=== PATIENT | male | born 1975 | race Caucasian/White ===

== ENCOUNTER 2022-07-25 21:44 | Emergency (ER) | payer OTHER ==
[~2022-07-25] VITALS: Ht 188 cm; Wt 90.9 kg
[2022-07-26] MEDS ORDERED: MIRA3350 PO (01:03)
[2022-07-26] MEDS ORDERED: ANUS25SU PR (01:03)
[2022-07-26] MEDS ORDERED: COLA100C5 PO (01:03)
[2022-07-26 01:13] VITALS: BP 122/65
== END 2022-07-26 01:17 | disposition home or self-care (01) ==
LOC: M ED 21:44
DX: K64.8 Other hemorrhoids (principal); K64.4 Residual hemorrhoidal skin tags; Z88.1 Allergy status to other antibiotic agents